=== PATIENT | female | born 1995 | race Caucasian/White ===

== ENCOUNTER 2023-08-28 12:13 | Inpatient (IN) | payer OTHER ==
[~2023-08-28] VITALS: Ht 180.3 cm; Wt 73.0 kg
--- NOTE | ~2023-08-28 | OR ---
[address] [address] [place] DATE OF OPERATION: 09/02/2023 SURGEON: Kimberly Stewart DO PREOPERATIVE DIAGNOSES: 1. Intrauterine at 38 and 3 weeks' gestation. 2. Decelerated growth. 3. 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 4. by maternal request. POSTOPERATIVE DIAGNOSES: 1. Intrauterine at 38 and 3 weeks' gestation. 2. Decelerated growth. 3. 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 4. by maternal request. PROCEDURE PERFORMED: Primary low transverse delivery by the patient request. ANESTHESIA: Spinal with general anesthetic and postoperative TAP block. GAS DESULFURIZER: Marlee Tinajero M.D. ESTIMATED BLOOD LOSS: 700 mL. FINDINGS: Delivery of viable female in the BALTAZAR position via Pfannenstiel skin incision and low transverse uterine incision. Nuchal cord x1 loose. Clear amniotic fluid. Normal uterus, tubes, and ovaries. COMPLICATIONS: None. DRAINS: Poole to gravity. INDICATIONS: PATIENT NAME: TONI INIGUEZ OPERATIVE REPORT DATE OF : [birth year] REPORT #: [id number] PHYSICIAN: KIMBERLY STEWART (GENA) PCP: KIMBERLY STEWART (GENA) REPORT IS CONFIDENTIAL AND NOT TO BE RELEASED WITHOUT AUTHORIZATION [address] [address] [place] Mrs. Iniguez is a very pleasant 28-year-old, G1, P0, with IUP at 38 and 3 weeks' gestation, presents for scheduled medical delivery. complicated by growth deceleration and Maternal- Medicine recommended delivery. The patient also has a history of HSV with no current outbreaks, on prophylaxis. She strongly desired a primary low transverse delivery by the patient request after extensive counseling. Risks, benefits, and alternatives were discussed in detail with the patient. The patient understands and wished to proceed with the procedure. DESCRIPTION OF PROCEDURE: The patient was taken to the operating room, where time-out was performed to confirm correct patient, correct procedure. Spinal anesthesia was adequately established and the patient was prepped and draped in the supine position with a bump under her right hip. ICPs were on and running and Poole catheter was inserted. The patient received Ancef 2 g preoperatively and heparin was not indicated. When adequacy of the spinal was checked, it was found to be inadequate with breakthrough pain. Attempts to wait for spinal to set up further failed and after consultation with the patient and with Anesthesia, decision was made to proceed with primary under general anesthetic. General anesthetic was adequately established and Pfannenstiel skin incision was made with a surgical scalpel, carried down to the fascia. The fascia was nicked in the midline and fascial incision was extended bilaterally using curved Fuller scissors. Fascia was grasped, elevated and entered and dissected from the underlying rectus using sharp and blunt dissection. Rectus was divided in the midline with blunt dissection and the peritoneum was entered bluntly. Peritoneal incision was extended cephalad-caudad using blunt dissection. José Miguel self retractor was placed and lower uterine segment identified. Some significant varicosities of the lower uterine segment were identified. A low transverse uterine incision was made using a surgical scalpel and some venous sinus bleeding was noted. were selected and the lower uterine segment grasped, elevated and hysterotomy was completed using surgical scalpel. Clear amniotic fluid. Hysterotomy was extended using blunt dissection and the head elevated into the abdomen. The fetus was then delivered with the assistance of fundal pressure. Nuchal cord x1 was noted and reduced. Clear amniotic fluid. The was delivered and cord was doubly clamped and cut. The handed to the waiting pediatric team for further evaluation and care. was vigorous and cried at delivery. Placenta was expressed, intact with a centrally inserted three-vessel cord. The uterine cavity was cleared of any remaining products of conception or clot and bleeding was scant. Hysterotomy was closed in two layers with 0-Monocryl, first being a running locked layer and the second being an imbricating layer in the vertical manner. The pelvis was irrigated and found to be hemostatic. Again, normal uterus, tubes, and ovaries were noted. Peritoneum was then reapproximated using 2-0 Vicryl in a running nonlocked manner. Rectus was plicated in the midline with three interrupted sutures of 0-Vicryl. Irrigated and found to be hemostatic with judicious use of Bovie electrocautery. Fascia was reapproximated using 0-Vicryl in a running nonlocked manner. PATIENT NAME: TONI INIGUEZ OPERATIVE REPORT DATE OF : [birth year] REPORT #: [id number] PHYSICIAN: KIMBERLY STEWART (GENA) DO PCP: KIMBERLY STEWART (GENA) DO REPORT IS CONFIDENTIAL AND NOT TO BE RELEASED WITHOUT AUTHORIZATION [address] [address] [place] Subcu was made hemostatic with judicious use of Bovie electrocautery and was irrigated and hemostasis assured. Subcu was reapproximated using 3-0 Vicryl in a running nonlocked manner. Skin was reapproximated using surgical roselyn. The uterus was Crede'd for scant amount of blood. The patient remained in the OR for postoperative TAP block per Anesthesia. Sponge, needle, and instrument count was correct x2 at the end of procedure. Dr. Tinajero was present and participated in all portions of the procedure. DO BERTIN Stoll/BRIANNAL /[id number] Copies: ~ PATIENT NAME: TONI INIGUEZ OPERATIVE REPORT DATE OF : [birth year] REPORT #: [id number] PHYSICIAN: KIMBERLY STEWART (GENA) PCP: KIMBERLY STEWART (GENA) REPORT IS CONFIDENTIAL AND NOT TO BE RELEASED WITHOUT AUTHORIZATION
[2023-09-02 05:28] LABS: HEMOGLOBIN 12.2 g/dL (12.0-18.0); MCV 97.1 fl (81-99); RBC 3.81 M/ul (4.3-5.7); RDW 15.5 (10.5-15.0)
[2023-09-02 06:07] VITALS: BP 112/68
[2023-09-02 06:22] LABS: ABO A; ANTIBODY SCREEN NEGATIVE; RH POSITIVE
[2023-09-02 06:25] LABS: INFLUENZA B NAA NEGATIVE (NEGATIVE); RESPIRATORY SYNCYTIAL VIR NAA NEGATIVE (NEGATIVE)
[2023-09-02 07:38] LABS: BARBITURATES, URINE NEGATIVE (NEGATIVE); BENZODIAZEPINE, URINE NEGATIVE (NEGATIVE); BUPRENORPHINE, URINE NEGATIVE (NEGATIVE); CANNABINOID, URINE POSITIVE (NEGATIVE); COCAINE, URINE NEGATIVE (NEGATIVE); ECSTASY, URINE NEGATIVE (NEGATIVE); FENTANYL, URINE NEGATIVE (NEGATIVE); METHADONE, URINE NEGATIVE (NEGATIVE); OPIATES, URINE NEGATIVE (NEGATIVE); OXYCODONE, URINE NEGATIVE (NEGATIVE); PHENCYCLIDINE, URINE NEGATIVE (NEGATIVE)
[2023-09-02 07:56] LABS: AMPHETAMINES, URINE NEGATIVE (NEGATIVE)
[2023-09-02 09:17] VITALS: BP 104/68
--- NOTE | 2023-09-02 09:41 | NUR ---
09/02/23 0941 Josey Lofton 4049 PT ARRIVED IN PACU SLEEPY. C/O ABD PAIN DURING FUNDAL MASSAGE, THEN FALLS ASLEEP AFTER. 0900 C/O 5/10 ABD PAIN. 09 FENTANYL 50MCG GIVEN IVP. 904 C/O DRY MOUTH. EATING ICE CHIPS. 910 ABD PAIN DOWN TO 4/10. FENTANYL 50MCG GIVEN IVP. 919 PAIN DOWN TO 2/10. 09 TO [facility]BC. BED PLUGGED IN AND REPORT GIVEN TO RN.
[2023-09-03 05:33] LABS: HEMATOCRIT 28.1 % (35.0-50.0); HEMOGLOBIN 9.3 g/dL (12.0-18.0); MCH 32.4 (27-36); MCV 98.3 fl (81-99); RBC 2.86 M/ul (4.3-5.7); RDW 15.1 (10.5-15.0)
--- NOTE | 2023-09-03 07:08 | PR ---
[facility] [address] [facility] [place], [place] [address] Signed PP Progress Notes Datetime Report Generated by CPN: 09/03/2023 07:08 SUBJECTIVE: [id number] Pain: Within Normal Limits Nausea/Vomiting: Denies Flatus: Yes Bowel Movement: No Vital Signs: [id number] Vital Signs: Reviewed; Within Normal Limits Cardiovascular: Normal Respiratory: Normal Abdomen/Uterus: Normal Lochia: Not Done Vulva/Perineum: Not Done Breasts: Not Done CVA Tenderness: Normal Extremities: Normal Incision: Normal Progress: Normal Exam Comments: Fundus firm U-2 nontender. ICPs off; recommended pt have on while in bed for duration of hospitalization IMPRESSION/PLAN/PROCEDURES: [id number] Impression: Normal Progression Plan: Continue Present Management Progress Notes: Pt seen and examined. Doing well. Ambulating, voiding, and tolerating full diet. Pain and lochia minimal. . No fevers/chills or other concerns. Anticipate d/c home tomorrow. All questions answered. Hgb 9.3, Plts 137 Signing Physician: Kimberly Stewart DO Copies: ~ *Electronically Signed* 09/03/23 07 KIMBERLY STEWART (GENA) DO PATIENT NAME: TONI INIGUEZ PROGRESS NOTE DATE OF : [birth year] PHYSICIAN: KIMBERLY STEWART (JD) DO RPT #: [id number] REPORT IS CONFIDENTIAL AND NOT TO BE RELEASED WITHOUT AUTHORIZATION
[2023-09-04 05:34] LABS: HEMATOCRIT 28.3 % (35.0-50.0); HEMOGLOBIN 9.3 g/dL (12.0-18.0); MCH 32.5 (27-36); MCHC 32.7 g/dl (30-36); MCV 99.1 fl (81-99); RBC 2.86 M/ul (4.3-5.7)
--- NOTE | 2023-09-04 08:40 | PR ---
[facility] [address] [facility] [place], [place] [address] Signed PP Progress Notes Datetime Report Generated by CPN: 09/04/2023 08:40 SUBJECTIVE: [id number] Pain: Within Normal Limits Nausea/Vomiting: Denies Flatus: No Bowel Movement: Yes Vital Signs: [id number] Vital Signs: Reviewed; Within Normal Limits Cardiovascular: Normal Respiratory: Normal Abdomen/Uterus: Normal Lochia: Normal Vulva/Perineum: Not Done Breasts: Not Done CVA Tenderness: Normal Extremities: Normal Incision: Normal Progress: Normal Exam Comments: Fundus firm U-2 nontender. Incision healing well w/ roselyn in place. IMPRESSION/PLAN/PROCEDURES: [id number] Impression: Normal Progression Plan: Discharge Progress Notes: Pt seen and examined. Doing well. Ambulating, voiding, and tolerating full diet. Pain and lochia minimal. well. No fevers/chills. Denies lightheadedness / dizziness. Reviewed d/c instructions and medications in detail. Declines contraceptive. F/U in office tomorrow for staple removal Signing Physician: Kimberly Stewart DO Copies: ~ *Electronically Signed* 09/04/23 0840 KIMBERLY STEWART (GENA) DO PATIENT NAME: TONI INIGUEZ PROGRESS NOTE DATE OF : [birth year] PHYSICIAN: KIMBERLY STEWART (JD) DO RPT #: [id number] REPORT IS CONFIDENTIAL AND NOT TO BE RELEASED WITHOUT AUTHORIZATION
--- NOTE | 2023-09-04 10:45 | NUR ---
DO NOT DISTURB SIGN ON DOOR. DID NOT ENTER ROOM. PRAYED SILENTLY FOR GOOD BEGINNINGS AND ONGOING BLESSING.
[2023-09-06 08:12] LABS: FERRITIN 14 ng/mL (13-150)
== END 2023-09-04 12:19 | disposition home or self-care (01) | DRG 787 ==
LOC: FBC 09-02 04:54
PROVIDERS: ADMIT Obstetrics & Gynecology; ATTEND Obstetrics & Gynecology
PROC: 10D00Z1 Extraction of Products of Conception, Low, Open Approach (ICD-10-PCS; principal; 2023-09-02 07:30)
DX: O36.5930 Maternal care for other known or suspected poor fetal growth, third trimester, not applicable or unspecified (principal); D62 Acute posthemorrhagic anemia; O98.32 Other infections with a predominantly sexual mode of transmission complicating childbirth; O99.324 Drug use complicating childbirth; O76 Abnormality in fetal heart rate and rhythm complicating labor and delivery; A60.09 Herpesviral infection of other urogenital tract; Z3A.38 38 weeks gestation of pregnancy; Z37.0 Single live birth; O69.81X0 Labor and delivery complicated by cord around neck, without compression, not applicable or unspecified; O90.81 Anemia of the puerperium; F12.90 Cannabis use, unspecified, uncomplicated; Z88.8 Allergy status to other drugs, medicaments and biological substances; Z79.899 Other long term (current) drug therapy; Z11.52 Encounter for screening for COVID-19; Z79.2 Long term (current) use of antibiotics
CPT/HCPCS: 01961; 36415; 76942; 80307; 82728; 85027; 86850; 86900; 86901; 87502; A9270; J0330; J0690; J1100; J1885; J2001; J2250; J2274; J2371; J2405; J2590; J2704; J2795; J3010; J3490; J7121; U0002

== ENCOUNTER 2024-08-29 01:25 | Emergency (ER) | payer OTHER ==
[~2024-08-29] VITALS: Ht 182.9 cm; Wt 56.7 kg
[2024-08-29] MEDS ORDERED: TETRACAINE HCL 0.5% 4 ML BTL OS SCH (01:45)
[2024-08-29] MEDS ORDERED: CIPROFLOXACIN 0.3% 5 ML HOME.PACK OPTH ONE (01:45)
[2024-08-29 01:55] VITALS: BP 119/74
== END 2024-08-29 01:55 | disposition home or self-care (01) ==
LOC: ED 01:25
DX: S05.01XA Injury of conjunctiva and corneal abrasion without foreign body, right eye, initial encounter (principal); Z88.8 Allergy status to other drugs, medicaments and biological substances; W25.XXXA Contact with sharp glass, initial encounter
CPT/HCPCS: 99283

== ENCOUNTER 2024-11-15 17:43 | Emergency (ER) | payer OTHER ==
[~2024-11-15] VITALS: Ht 182.9 cm; Wt 55.3 kg
--- OUTSIDE RECORDS SUMMARY | 2024-11-15 17:50 | XMS ---
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 E.D. VISIT COUNT (12 MO.) 3 [facility] 2 SANDRA Beltran Liliane TOTAL 5 NOTE: Visits indicate total known visits. ED/UCC VISIT TRACKING (12 MO.) 11/15/2024 17:44 SANDR[facility] Garcia [place] TYPE: Emergency COMPLAINT: - WITHDRAWAL 11/11/2024 16:06 [facility] [place] TYPE: Emergency DIAGNOSES: - Muscle spasm of back - Other muscle spasm - BACK AND NECK PAIN 08/29/2024 01:26 SANDR[facility] Garcia [place] TYPE: Emergency COMPLAINT: - FOREIGN OBJECT IN EYE DIAGNOSES: - Allergy status to other drugs, medicaments and biological substances - Contact with sharp glass, initial encounter - Foreign body sensation, right eye - Injury of conjunctiva and corneal abrasion without foreign body, right eye, initial encounter 05/21/2024 20:42 [facility] [place] TYPE: Emergency DIAGNOSES: - Right upper quadrant pain - Fever 03/29/2024 10:31 [facility] [place] TYPE: Emergency DIAGNOSES: - Mastitis without abscess - COVID SYMPTOMS L BREAST PAIN INPATIENT VISIT TRACKING (12 MO.) No inpatient visits to display in this time frame [email or web address]
[2024-11-15] MEDS ORDERED: VALACYCLOVIR500 MG PO (18:19)
[2024-11-15 20:15] LABS: BILIRUBIN, URINE NEGATIVE (negative); BLOOD/HGB, URINE NEGATIVE (Negative); KETONE, URINE TRACE (Negative); LEUK ESTERASE, URINE NEGATIVE (negative); NITRITE, URINE NEGATIVE (negative)
[2024-11-15] MEDS ORDERED: LACTATED RINGER'S 1,000 ML IV ONE (20:15)
[2024-11-15 20:29] LABS: AMPHETAMINES, URINE NEGATIVE (NEGATIVE); BARBITURATES, URINE NEGATIVE (NEGATIVE); BENZODIAZEPINE, URINE NEGATIVE (NEGATIVE); BUPRENORPHINE, URINE NEGATIVE (NEGATIVE); CANNABINOID, URINE POSITIVE (NEGATIVE); COCAINE, URINE NEGATIVE (NEGATIVE); ECSTASY, URINE NEGATIVE (NEGATIVE); FENTANYL, URINE NEGATIVE (NEGATIVE); METHADONE, URINE NEGATIVE (NEGATIVE); OPIATES, URINE NEGATIVE (NEGATIVE); OXYCODONE, URINE NEGATIVE (NEGATIVE); PHENCYCLIDINE, URINE NEGATIVE (NEGATIVE)
[2024-11-15 20:35] LABS: BASOPHILS 0.5 % (0-2); EOSINOPHILS 0.9 % (0-6); HEMATOCRIT 38.5 % (35.0-50.0); HEMOGLOBIN 12.9 g/dL (12.0-18.0); LYMPHOCYTES 26.3 % (24-44); MCH 33.1 (27-36); MCHC 33.6 g/dl (30-36); MCV 98.5 fl (81-99); MONOCYTES 8.1 % (0-12); NEUTROPHILS 64.2 % (39-80); PLATELET COUNT 201 K/uL (140-440); RDW 13.4 (10.5-15.0)
[2024-11-15 20:51] LABS: ALBUMIN 3.9 g/dL (3.4-5.0); ALBUMIN/GLOBULIN RATIO 1.22 (1.1-2.4); ANION GAP 12.4 (7-21); BILIRUBIN, TOTAL 1.1 ng/dL (0.2-1.0); BUN/CREATININE RATIO 19.23 (6.0-28.6); CALCIUM 8.5 mg/dL (8.5-10.1); CREATININE, SERUM 0.78 mg/dL (0.55-1.02); MAGNESIUM 1.8 mg/dL (1.8-2.4); POTASSIUM 3.4 mmol/L (3.5-5.1); PROTEIN, TOTAL 7.1 g/dL (6.4-8.2)
[2024-11-15 21:41] VITALS: BP 112/67
== END 2024-11-15 21:45 | disposition home or self-care (01) ==
LOC: ED 17:43
PROVIDERS: Family Medicine
DX: R56.9 Unspecified convulsions (principal); T42.4X5A Adverse effect of benzodiazepines, initial encounter; Z88.8 Allergy status to other drugs, medicaments and biological substances
CPT/HCPCS: 36415; 80053; 80307; 81003; 83735; 85025; J7121

== ENCOUNTER 2025-05-06 17:23 | Emergency (ER) | payer OTHER ==
[~2025-05-06] VITALS: Ht 182.9 cm; Wt 55.4 kg
[~2025-05-06 17:23] MED LIST: VALACYCLOVIR500 MG PO
--- OUTSIDE RECORDS SUMMARY | 2025-05-06 17:30 | XMS ---
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 - 2 Visits in 30 Days CARE PROVIDERS -, [facility]- Dentist: Plastics Technician [facility] PHONE: [phone] [facility]: [facility] Current FAMILY PHONE: [phone] JOE RODRIGUEZ Internal Medicine Current PHONE: Unknown Lio has no Care Guidelines for this patient. E.D. VISIT COUNT (12 MO.) 4 [facility] 3 SANDRA MahanRaz TOTAL 7 NOTE: Visits indicate total known visits. ED/UCC VISIT TRACKING (12 MO.) 05/06/2025 17:24 [facility] Lil[place] TYPE: Emergency COMPLAINT: - JAW PAIN 04/28/2025 01:18 [facility] [place] TYPE: Emergency DIAGNOSES: - Vomiting, unspecified - vomiting 01/24/2025 13:19 [facility] [place] TYPE: Emergency DIAGNOSES: - Other mucopurulent conjunctivitis, left eye - EYE PAIN 11/15/2024 17:44 SANDRA Garcia [place] TYPE: Emergency COMPLAINT: - WITHDRAWAL DIAGNOSES: - Adverse effect of benzodiazepines, initial encounter - Allergy status to other drugs, medicaments and biological substances - Unspecified convulsions 11/11/2024 16:06 [facility] [place] TYPE: Emergency DIAGNOSES: - Muscle spasm [...] body, right eye, initial encounter 05/21/2024 20:42 [facility] [place] TYPE: Emergency DIAGNOSES: - Right upper quadrant pain - Fever INPATIENT VISIT TRACKING (12 MO.) No inpatient visits to display in this time frame [email or web address]
[2025-05-06] MEDS ORDERED: KETOROLAC TROMETHAMINE 30 MG/ML VIAL IM ONE (18:45)
[2025-05-06] MEDS ORDERED: BUTALB/ACETAMINOPHEN/CAFFEINE 1 EACH CAP PO ONE (18:45)
[2025-05-06] MEDS ORDERED: BUTALB-ACETAMI1 EAC2 PO (19:07)
[2025-05-06 19:28] VITALS: BP 115/80
== END 2025-05-06 19:28 | disposition home or self-care (01) ==
LOC: ED 17:23
DX: R51.9 Headache, unspecified (principal); Z79.899 Other long term (current) drug therapy; Z88.8 Allergy status to other drugs, medicaments and biological substances
CPT/HCPCS: 96372; 99283; J1885